=== PATIENT | male | born 1955 | race Caucasian/White ===

== ENCOUNTER 2018-02-19 05:49 | Inpatient (IN) | payer OTHER ==
[2018-02-19 06:29] VITALS: BMI 34.4
[2018-02-19] MEDS ORDERED: CEFAZOLIN 2 GM in DEXTROSE 5%-WATER - 50 ML IVPB ONE (07:17)
[2018-02-19] MEDS ORDERED: TRANEXAMIC ACID 1000 MG/10 ML VIAL IVPUSH ONE (07:17)
[2018-02-19] MEDS ORDERED: oxyCODONE HCL 10 MG SUSTAINED ACTING TABLET ONE (07:33)
[2018-02-19] MEDS ORDERED: CELECOXIB 200 MG CAPSULE ONE (07:33)
[2018-02-19] MEDS: oxyCODONE HCL 10 MG SUSTAINED ACTING TABLET PO ONE ×2 (07:35→13:39)
[2018-02-19] MEDS: CELECOXIB 200 MG CAPSULE PO ONE ×2 (07:35→13:36)
[2018-02-19] MEDS ORDERED: DEXAMETHASONE SOD PHOSPHATE/PF 10 MG/ML SDV ONE (07:37)
[2018-02-19] MEDS ORDERED: BUPIVACAINE LIPOSOME/PF (EXPAREL) 266 MG/20 ML VIAL ONE (07:38)
[2018-02-19] MEDS ORDERED: MIDAZOLAM HCL 2 MG/2 ML SINGLE DOSE VIAL ONE ×2 (07:38→08:25)
--- NOTE | 2018-02-19 07:39 | HP ---
History & Physical Update - History History: No Change - Physical Physical: No Change - Assessment Assessment: No Change - Plan Plan: No Change (Initial H&P is complete and located in patient's papaer chart. No new complaints or medications. Here today for elective repair of his left knee OA.)
[2018-02-19] MEDS ORDERED: PROPOFOL 20 ML ONE ×3 (08:25)
[2018-02-19] MEDS ORDERED: BENZOIN/ALOE VERA/STORAX/TOLU 58 ML BOTTLE ONE (08:26)
[2018-02-19] MEDS ORDERED: ceFAZolin SODIUM 1 GM VIAL ONE ×2 (08:31→10:57)
[2018-02-19] MEDS ORDERED: TRANEXAMIC ACID 1000 MG/10 ML VIAL ONE ×2 (08:36→10:48)
[2018-02-19] MEDS ORDERED: KETAMINE HCL 200 MG/20 ML VIAL ONE (08:54)
[2018-02-19] MEDS ORDERED: VANCOMYCIN 1,000 MG VIAL (RESTRICTED TO ID ONLY) ONE (09:05)
[2018-02-19] MEDS ORDERED: ONDANSETRON 4 MG/2 ML VIAL IVPUSH PRN ×2 (10:44→11:20)
[2018-02-19] MEDS ORDERED: MAG HYDROX/AL HYDROX/SIMETH 30 ML UNIT-DOSE CUP PO PRN (10:44)
[2018-02-19] MEDS ORDERED: MAGNESIUM HYDROX 2400MG/30ML ORAL SUSPENSION 30 ML CUP PO PRN (10:44)
[2018-02-19] MEDS ORDERED: LACTATED RINGERS SOLUTION 1,000 ML IV SCH (10:45)
--- NOTE | 2018-02-19 10:50 | OP ---
Operative Note - Note: Operative Date: 02/19/18 Pre-Operative Diagnosis: Left knee DJD Operation: Left TKA Implants: [employer] Tri[employer]. Femur - 6, PS. Tibia - 7. Poly - 13mm, TS. Patella - 27mm, symmetric Surgeon: Per French [employer]her [employer] Mica: Timbo French Anesthesiologist/SOLDERING MACHINE OPERATOR: Zion Goncalves Anesthesia: Spinal Specimens Removed: Bone, soft tissue Estimated Blood Loss (mls): 0 Drains & Tubes with Location: 1 x superficial hemovac Fluid Volume Replaced (mls): 1,000 Operative Report Dictated: Yes
--- NOTE | 2018-02-19 10:53 | PN ---
Progress Note (short form) - Note Progress Note: 62M s/p L TKA POD #0. -Pain control. -DVT PPx: -Chemical: ASA 81mg PO BID x 6 weeks. -Mechanical: COLT's, SCD's. -Incentive spirometry. -PT/OT/Rehab, OOB. -WBAT LLE. -f/u drain output. -f/u AM labs. -Care per medical hospitalist team. -Discharge planning: f/u [facility] [place] office 02/27/2018. Call for appointment: . -Will follow. Per French MD (Orthopaedic Surgery).
[2018-02-19] MEDS ORDERED: oxyCODONE HCL 5 MG TABLET PO PRN (11:20)
[2018-02-19] MEDS ORDERED: ACETAMINOPHEN 325 MG TABLET (FP) PO ONE (11:45)
--- NOTE | 2018-02-19 12:58 | CONSULT ---
Consultation: REQUESTING PROVIDER: Dr French CONSULT REQUEST: We have been asked to medically evaluate this patient for medical management HISTORY OF PRESENT ILLNESS: Patient is a 62-year-old male with a past medical history of hypertensions, DJD, s/p cervical fusion 2008. Patient is s/p left total knee replacement, Dr French, spinal anesthesia, 02/19/18 REVIEW OF SYSTEMS: CONSTITUTIONAL: Absent: fever, chills, diaphoresis, generalized weakness, malaise, loss of appetite, weight change HEENT: Absent: rhinorrhea, nasal congestion, throat pain, throat swelling, difficulty swallowing, mouth swelling, ear pain, eye pain, visual changes CARDIOVASCULAR: Absent: chest pain, syncope, palpitations, irregular heart rate, lightheadedness , peripheral edema RESPIRATORY: Absent: cough, shortness of breath, dyspnea with exertion, orthopnea, wheezing, stridor, hemoptysis GASTROINTESTINAL: Absent: abdominal pain, abdominal distension, nausea, vomiting, diarrhea, constipation, melena, hematochezia GENITOURINARY: Absent: dysuria, frequency, urgency, hesitancy, hematuria, flank pain, genital pain MUSCULOSKELETAL: Present: left knee pain Absent: myalgia, arthralgia, joint swelling, back pain, neck pain SKIN: Absent: rash, itching, pallor HEMATOLOGIC/IMMUNOLOGIC: Absent: easy bleeding, easy bruising, lymphadenopathy, frequent infections ENDOCRINE: Absent: unexplained weight gain, unexplained weight loss, heat intolerance, cold intolerance NEUROLOGIC: Absent: headache, focal weakness or paresthesias, dizziness, unsteady gait, seizure, mental status changes, bladder or bowel incontinence PSYCHIATRIC: Absent: anxiety, depression, suicidal or homicidal ideation, hallucinations. PHYSICAL EXAMINATION Vital Signs - 24 hr 02/19/18 02/19/18 02/19/18 06:22 11:18 11:20 Temperature 97.9 F 97.9 F Pulse Rate 55 L 61 54 L Respiratory 18 Rate Blood Pressure 137/70 98/52 103/58 O2 Sat by Pulse 99 99 Oximetry (%) 02/19/18 02/19/18 02/19/18 11:25 11:30 11:45 Temperature Pulse Rate 58 L 60 53 L Respiratory 18 Rate Blood Pressure 105/59 96/58 105/57 O2 Sat by Pulse 99 100 100 Oximetry (%) 05/30/18 05/30/18 12:00 12:10 Temperature 97.9 F Pulse Rate 51 L 53 L Respiratory 18 18 Rate Blood Pressure 102/62 107/67 O2 Sat by Pulse 100 Oximetry (%) GENERAL: Awake, alert, and fully oriented, in no acute distress. HEAD: Normal with no signs of trauma. EYES: Pupils equal, round and reactive to light, extraocular movements intact, sclera anicteric, conjunctiva clear. No lid lag. EARS, NOSE, THROAT: Ears normal, nares patent, oropharynx clear without exudates. Moist mucous membranes. NECK: Normal range of motion, supple without lymphadenopathy, JVD, or masses. LUNGS: Breath sounds equal, clear to auscultation bilaterally. No wheezes, and no crackles. No accessory muscle use. HEART: Regular rate and rhythm, normal S1 and S2 without murmur, rub or gallop. ABDOMEN: Soft, nontender, not distended, normoactive bowel sounds, no guarding, no rebound, no masses. No hepatomegaly or splenomegaly. MUSCULOSKELETAL: Normal range of motion at all joints. No bony deformities or tenderness. No CVA tenderness. UPPER EXTREMITIES: 2+ pulses, warm, well-perfused. No cyanosis. No clubbing. Cap refill <2 seconds. No peripheral edema. LOWER EXTREMITIES: 2+ pulses, warm, well-perfused. No calf tenderness. No peripheral edema. LEFT LOWER EXTREMITY: Huy BANDAGE IN PLACE hEMOVAC SCANT SANGUINOUS DRAINAGE NOTED SCD/COLT IN PLACE, LESS THAN 3 SECOND CAPILLARY REFILL +3 PEDAL PULSE NEUROLOGICAL: Cranial nerves II-XII intact. Normal speech. Normal gait. PSYCHIATRIC: Cooperative. Good eye contact. Appropriate mood and affect. SKIN: Warm, dry, normal turgor, no rashes or lesions noted. Active Medications Generic Name Dose Route Start Last Admin Trade Name Freq PRN Reason Stop Dose Admin Acetaminophen 650 mg 02/19/18 11:30 Tylenol - PO 02/22/18 11:29 Q6H JIMI Al Hydroxide/Mg Hydroxide 30 ml 02/19/18 10:44 Mylanta Oral Suspension - PO Q4H PRN DYSPEPSIA Aspirin 81 mg 02/19/18 22:00 Asa - PO BID [facility] Fentanyl 50 mcg 02/19/18 11:20 Sublimaze Injection - IVPUSH [id number] PRN PAIN-PACU ORDER X 4 DOSES ONLY Cefazolin Sodium 2 gm/ 100 mls @ 200 mls/hr 02/19/18 17:00 Dextrose IVPB 02/20/18 01:29 Q8H JIMI Lactated Ringer's 1,000 mls @ 100 mls/hr 02/19/18 10:45 Lactated Ringers Solution IV 02/20/18 06:00 ASDIR JIMI Lactated Ringer's 1,000 mls @ 75 mls/hr 02/19/18 11:30 Lactated Ringers Solution IV ASDIR JIMI Lisinopril 20 mg 02/20/18 10:00 Prinivil PO DAILY JIMI Magnesium Hydroxide 30 ml 02/19/18 10:44 Milk Of Magnesia - PO PRN PRN CONSTIPATION Ondansetron HCl 4 mg 02/19/18 10:44 Zofran Injection IVPUSH Q6H PRN NAUSEA Ondansetron HCl 4 mg 02/19/18 11:20 Zofran Injection IVPUSH Q6H PRN NAUSEA AND/OR VOMITING Oxycodone HCl 5 mg 02/19/18 11:20 Roxicodone - PO Q3H PRN PAIN LEVEL 1-5 Oxycodone HCl 10 mg 02/19/18 11:20 Roxicodone - PO Q3H PRN PAIN LEVEL 6-10 Oxycodone HCl 10 mg 02/19/18 22:00 Oxycontin - PO 02/22/18 11:20 BID [facility] Pantoprazole Sodium 40 mg 02/20/18 10:00 Protonix - PO DAILY [facility] Quetiapine Fumarate 50 mg 02/19/18 22:00 Seroquel - PO [facility] Senna/Docusate Sodium tablet 02/19/18 22:00 Pericolace - PO BID [facility] ASSESSMENT/PLAN: 1) MS s/p Left total knee replacement - When necessary pain medication - Physical therpay as per orthopedist - monitor hgb 2) cardiovascular hypertension - Continue lisinopril Dispo: We will continue to follow the patient. Thank you for this consultative opportunity. Visit type - Emergency Visit Emergency Visit: No - New Patient This patient is new to me today: Yes Date on this admission: 02/19/18 - Critical Care Critical Care patient: No
[2018-02-19] MEDS: oxyCODONE HCL 5 MG TABLET PO PRN ×4 (13:26→23:27)
[2018-02-19] MEDS: LACTATED RINGERS SOLUTION 1,000 ML IV SCH (13:39)
[2018-02-19] MEDS: ACETAMINOPHEN 325 MG TABLET (FP) PO SCH ×3 (13:41→23:26)
[2018-02-19] MEDS ORDERED: REFRIGERATED ANITBIOTICS ONE (16:26)
[2018-02-19] MEDS: CEFAZOLIN 2 GM in DEXTROSE 5%-WATER - 100 ML IVPB SCH (16:31)
--- NOTE | 2018-02-19 19:03 | OP ---
DATE OF OPERATION: 02/19/2018 SURGEON: Per French MD [facility] RO[facility] ATTENDANT: Timbo French MD; KERLINE Savage PREOPERATIVE DIAGNOSIS: Tricompartment osteoarthritis of the left knee with fixed varus and fixed flexion deformity of approximately 15 degrees each. ANESTHESIA: Peripheral nerve block combined with spinal anesthesia and conscious sedation. ANTIBIOTICS GIVEN: Kefzol 2 g, vancomycin 1g preoperatively, and Kefzol 1 g given at the time of release of the tourniquet. TOURNIQUET TIME: 90 minutes. OPERATION PERFORMED: 1. Left posterior stabilized total knee arthroplasty ([employer] Triathlon). 2. Lateral release. OPERATION DETAILS: Patient correctly identified, brought in the operating room. Timeout was called. Imaging was available for intraoperative evaluation. The left lower extremity was prepped, free draped in the routine manner with Betadine scrub solution, wiped off with alcohol, DuraPrep applied and a free drape applied. Preoperative range of movement was about 15 to 80-90 degrees. A midline incision was utilized. The thoughts towards a sub-vastus approach was canceled because of the tightness of the knee, and we went ahead with a routine longitudinal incision in the quadriceps tendon, longitudinally incised, a medial parapatellar incision performed around the medial tibial tubercle, with difficulty. It was difficult to maneuver the patella. Utilizing Whitesides principles of an incision from the quadriceps ligament to the patella ligament, the patella was cut virtually in the vertical position in order to debulk the patella to gain access to this knee joint. The lateral facets were obliquely incised (Xavi-Castellano). This extended into a lateral release. Utilizing a Hohmann retractor placed in intercondylar notch behind the tibia, the tibia was levered forward after a careful dissection of the proximal soft tissue envelope off the proximal medial aspect of the tibia utilizing a sharp knife to free the soft tissues off the bone bed. This gave easy access to the actual tibia. The popliteus was transected and the tibial cut was made utilizing extramedullary jig alignment device from [employer]. The cut was made neutral and an approximately 0.75 cm cut made appropriately. This was for measurement for a size 7 universal baseplate tibia. The femur was then cut appropriately, according to the jig alignment system, the entry hole being made just above the intercondylar notch, which was shut down by osteophyte. The sword of the intramedullary device inserted, aiming at keeping the hand anterior to decrease any flexion positioning of the component. Onto this, the appropriate jig system was applied, this to resect 10 mm off the distal femur. A size 6 Triathlon posterior stabilized femoral component was cut appropriately. The starter hole as sealed with a bone plug. The flexion and extension gaps were even. It was noted that there was slight looseness after the bony cuts and soft tissue dissection, that the medial side opened unpredictably more than the lateral side. This blocked the rectangle of the flexion/extension gaps and hence the TS polyethylene was utilized. The femur size 7 was seated as a trial. Trialing was excellent, with a size 13 polyethylene liner, full extension and flexion beyond 90 degrees achieved. Cement of the bone bed was thoroughly lavaged with pulse lavage cementing as one stage, patella, tibia and femur. All extraneous cement was removed once cured. The size 13-mm polyethylene liner was inserted. The knee was reduced and was completely anatomical, with full extension and full flexion. It must be noted that at the beginning of the procedure, the patellar ligament wanted to peel off the tibial tubercle. This was held in position by 2 pins placed into the patellar ligament and bone bed to prevent this event. The closure was as follows: Thorough lavage performed with pulse lavage. Fascia and paratenon with 1 Vicryl; subcutaneous 1 and 2-0 Vicryl; skin 3-0 Monocryl; Steri-Strips. Drainage: A 1/8-inch Hemovac x1. OVERALL COMMENT: The operation went well. Difficult knee. MD DEVYN Martinez/[id number]
[2018-02-19] MEDS: QUEtiapine FUMARATE 25 MG TABLET (FP) PO SCH (21:16)
[2018-02-19] MEDS: SENNOSIDES/DOCUSATE COMBO (SENNA PLUS) TABLET (UD) PO SCH (21:16)
[2018-02-19] MEDS: ASPIRIN 81 MG CHEWABLE TABLETS PO SCH (21:16)
[2018-02-19] MEDS: oxyCODONE HCL 10 MG SUSTAINED ACTING TABLET PO SCH (21:17)
[2018-02-20] MEDS: CEFAZOLIN 2 GM in DEXTROSE 5%-WATER - 100 ML IVPB SCH (01:06)
[2018-02-20] MEDS: oxyCODONE HCL 5 MG TABLET PO PRN ×5 (02:27→19:31)
[2018-02-20] MEDS: ACETAMINOPHEN 325 MG TABLET (FP) PO SCH ×3 (06:33→18:13)
[2018-02-20 08:26] LABS: HEMATOCRIT 39.5 % (35.4-49); MCH 31.4 pg (25.7-33.7); MCHC 35.5 g/dl (32.0-35.9); MEAN CELL VOLUME 88.5 fl (80-96); MEAN PLT VOLUME 8.9 fl (7.5-11.1); PLATELET COUNT 227 K/MM3 (134-434); RBC 4.47 M/mm3 (4.00-5.60); WHITE BLOOD COUNT 15.6 K/mm3 (4.0-10.8)
[2018-02-20 08:30] LABS: ANION GAP 8 (8-16); BLOOD UREA NITROGEN 12 mg/dl (7-18); CALCIUM 8.5 mg/dl (8.4-10.2); CHLORIDE 98 mmol/L (98-107); CO2 24 mmol/L (22-28); GLUCOSE,RANDOM 129 mg/dl (74-106); POTASSIUM 3.5 mmol/L (3.5-5.1); SODIUM 130 mmol/L (136-145)
[2018-02-20 09:02] LABS: CREATININE < 0.8 mg/dl (0.6-1.3)
[2018-02-20] MEDS: ASPIRIN 81 MG CHEWABLE TABLETS PO SCH ×2 (10:06→21:39)
[2018-02-20] MEDS: SENNOSIDES/DOCUSATE COMBO (SENNA PLUS) TABLET (UD) PO SCH ×2 (10:07→21:39)
[2018-02-20] MEDS: LISINOPRIL 20 MG TABLET (FP) PO SCH (10:07)
[2018-02-20] MEDS: PANTOPRAZOLE 40 MG TABLET (FP) PO SCH (10:07)
[2018-02-20] MEDS: oxyCODONE HCL 10 MG SUSTAINED ACTING TABLET PO SCH ×2 (10:07→21:39)
--- NOTE | 2018-02-20 11:02 | PN ---
Progress Note, Physician Chief Complaint: s/p left knee arthoplasty under spinal anesthesia post op day one. History of Present Illness: adductor canal block for post op pain control. - Current Medication List Current Medications: Active Medications Acetaminophen (Tylenol -) 650 mg PO Q6H [facility] Stop: 02/22/18 17:59 Last Admin: 02/20/18 06:33 Dose: 650 mg Al Hydroxide/Mg Hydroxide (Mylanta Oral Suspension -) 30 ml PO Q4H PRN PRN Reason: DYSPEPSIA Aspirin (Asa -) 81 mg PO BID [facility] Last Admin: 02/20/18 10:06 Dose: 81 mg Fentanyl (Sublimaze Injection -) 50 mcg IVPUSH [id number] PRN PRN Reason: PAIN-PACU ORDER X 4 DOSES ONLY Lactated Ringer's (Lactated Ringers Solution) 1,000 mls @ 75 mls/hr IV ASDIR [facility] Last Admin: 02/19/18 13:39 Dose: Not Given Lisinopril (Prinivil) 20 mg PO DAILY [facility] Last Admin: 02/20/18 10:07 Dose: 20 mg Magnesium Hydroxide (Milk Of Magnesia -) 30 ml PO PRN PRN PRN Reason: CONSTIPATION Ondansetron HCl (Zofran Injection) 4 mg IVPUSH Q6H PRN PRN Reason: NAUSEA Oxycodone HCl (Roxicodone -) 5 mg PO Q3H PRN PRN Reason: PAIN LEVEL 1-5 Oxycodone HCl (Roxicodone -) 10 mg PO Q3H PRN PRN Reason: PAIN LEVEL 6-10 Last Admin: 02/20/18 10:08 Dose: 10 mg Oxycodone HCl (Oxycontin -) 10 mg PO BID [facility] Stop: 02/22/18 11:20 Last Admin: 02/20/18 10:07 Dose: 10 mg Pantoprazole Sodium (Protonix -) 40 mg PO DAILY [facility] Last Admin: 02/20/18 10:07 Dose: 40 mg Quetiapine Fumarate (Seroquel -) 50 mg PO HS [facility] Last Admin: 02/19/18 21:16 Dose: 50 mg Senna/Docusate Sodium (Pericolace -) 2 tablet PO BID [facility] Last Admin: 02/20/18 10:07 Dose: 2 tablet - Objective Vital Signs: Vital Signs Temperature 98.4 F 02/20/18 06:00 Pulse Rate 83 02/20/18 06:00 Respiratory Rate 18 02/20/18 08:27 Blood Pressure 124/65 02/20/18 06:00 O2 Sat by Pulse Oximetry (%) 98 02/20/18 08:27 Constitutional: Yes: Well Nourished Cardiovascular: Yes: WNL Respiratory: Yes: WNL Gastrointestinal: Yes: WNL Labs: CBC, BMP 02/20/18 07:40 02/20/18 07:40 Assessment/Plan Patient doing well, pain controlled, no nausea or vomiting, dept of anesthesia will sign off care at this time.
--- NOTE | 2018-02-20 13:29 | PN ---
Physical Exam: SUBJECTIVE: Patient seen and examined, Sitting in a recliner reports feeling well, and related this morning with physical therapy denies any chest pain or shortness of breath denies any paresthesia the left lower extremity. OBJECTIVE: Patient is a 62-year-old male with a past medical history of hypertensions, DJD, s/p cervical fusion 2008. Patient is s/p left total knee replacement, Dr French, spinal anesthesia, post op day 1. Vital Signs Period Temp Pulse Resp BP Sys/Bush Pulse Ox Last 24 Hr 97.1 F-98.4 F 55-102 16-19 122-138/65-77 97-100 GENERAL: The patient is awake, alert, and fully oriented, in no acute distress. HEAD: Normal with no signs of trauma. EYES: PERRL, extraocular movements intact, sclera anicteric, conjunctiva clear. No ptosis. ENT: Ears normal, nares patent, oropharynx clear without exudates, moist mucous membranes. NECK: Trachea midline, full range of motion, supple. LUNGS: Breath sounds equal, clear to auscultation bilaterally, no wheezes, no crackles, no accessory muscle use. HEART: Regular rate and rhythm, S1, S2 without murmur, rub or gallop. ABDOMEN: Soft, nontender, nondistended, normoactive bowel sounds, no guarding, no rebound, no hepatosplenomegaly, no masses. EXTREMITIES: 2+ pulses, warm, well-perfused, no edema. LOWER EXTREMITY: dressing CDI, Hemovac drain scant sanguinous drainage, less than 3 second capillary refill, +4 pedal pulse, SCDs/saqib NEUROLOGICAL: Cranial nerves II through XII grossly intact. Normal speech, gait not observed. PSYCH: Normal mood, normal affect. SKIN: Warm, dry, normal turgor, no rashes or lesions noted Laboratory Results - last 24 hr 02/20/18 02/20/18 07:40 07:40 WBC 15.6 H RBC 4.47 Hgb 14.0 Hct 39.5 MCV 88.5 MCH 31.4 MCHC 35.5 RDW 12.0 Plt Count 227 MPV 8.9 Sodium 130 L Potassium 3.5 Chloride 98 Carbon Dioxide 24 Anion Gap 8 BUN 12 Creatinine < 0.8 Random Glucose 129 H Calcium 8.5 Active Medications Generic Name Dose Route Start Last Admin Trade Name Freq PRN Reason Stop Dose Admin Acetaminophen 650 mg 02/19/18 18:00 02/20/18 06:33 Tylenol - PO 02/22/18 17:59 650 mg Q6H JIMI Administration Al Hydroxide/Mg Hydroxide 30 ml 02/19/18 10:44 Mylanta Oral Suspension - PO Q4H PRN DYSPEPSIA Aspirin 81 mg 02/19/18 22:00 02/20/18 10:06 Asa - PO 81 mg BID JIMI Administration Fentanyl 50 mcg 02/19/18 11:20 Sublimaze Injection - IVPUSH [id number] PRN PAIN-PACU ORDER X 4 DOSES ONLY Lactated Ringer's 1,000 mls @ 75 mls/hr 02/19/18 11:30 02/19/18 13:39 Lactated Ringers Solution IV Not Given ASDIR JIMI Lisinopril 20 mg 02/20/18 10:00 02/20/18 10:07 Prinivil PO 20 mg DAILY JIMI Administration Magnesium Hydroxide 30 ml 02/19/18 10:44 Milk Of Magnesia - PO PRN PRN CONSTIPATION Ondansetron HCl 4 mg 02/19/18 10:44 Zofran Injection IVPUSH Q6H PRN NAUSEA Oxycodone HCl 5 mg 02/19/18 11:20 Roxicodone - PO Q3H PRN PAIN LEVEL 1-5 Oxycodone HCl 10 mg 02/19/18 11:20 02/20/18 10:08 Roxicodone - PO 10 mg Q3H PRN Administration PAIN LEVEL 6-10 Oxycodone HCl 10 mg 02/19/18 22:00 02/20/18 10:07 Oxycontin - PO 02/22/18 11:20 10 mg BID JIMI Administration Pantoprazole Sodium 40 mg 02/20/18 10:00 02/20/18 10:07 Protonix - PO 40 mg DAILY JIMI Administration Quetiapine Fumarate 50 mg 02/19/18 22:00 02/19/18 21:16 Seroquel - PO 50 mg HS [facility] Administration Senna/Docusate Sodium 2 tablet 02/19/18 22:00 02/20/18 10:07 Pericolace - PO 2 tablet BID JIMI Administration ASSESSMENT/PLAN: 1) MS s/p Left total knee replacement, POD #1 - When necessary pain medication - Physical therpay as per orthopedist - repeat hgb 14.0 2) cardiovascular hypertension - Continue lisinopril - b/p at goal Dispo: We will continue to follow the patient. Thank you for this consultative opportunity. Visit type - Emergency Visit Emergency Visit: No - New Patient This patient is new to me today: No - Critical Care Critical Care patient: No - Discharge Referral Referred to [facility] Med P.C.: No
--- NOTE | 2018-02-20 13:29 | PN ---
Progress Note (short form) - Note Progress Note: 62yo M s/p Left knee replacement POD 1, seen sitting up in chair. Pt complains of some moderate Lt knee pain that is controlled with pain medication. Pt denies n/v, fever, chills, weakness. Pt had morning session with PT that went well. Pt urinating well and tolerating PO Last Vital Signs Temp Pulse Resp BP Pulse Ox 98.4 F 83 18 124/65 98 02/20/18 06:00 02/20/18 06:00 02/20/18 08:27 02/20/18 06:00 02/20/18 08:27 CBC, BMP 02/20/18 07:40 02/20/18 07:40 PE: Gen: A&O x 3 Resp: breathing comfortably Ext: Left leg wrapped in dressing no visible stains or discharge. Mild tenderness to palpation. Drain in place with serosanguinous drainage. Output: 25ml Problem List - Problems (1) Knee osteoarthritis Assessment/Plan: Plan Continue PT this afternoon Pain control DVT ppx consider removing drain tomorrow and possible discharge Code(s): M17.10 - UNILATERAL PRIMARY OSTEOARTHRITIS, UNSPECIFIED KNEE
[2018-02-20] MEDS: QUEtiapine FUMARATE 25 MG TABLET (FP) PO SCH (21:39)
[2018-02-21] MEDS: ACETAMINOPHEN 325 MG TABLET (FP) PO SCH ×3 (00:14→11:22)
[2018-02-21] MEDS: oxyCODONE HCL 5 MG TABLET PO PRN ×2 (06:13→13:16)
[2018-02-21] MEDS: LACTATED RINGERS SOLUTION 1,000 ML IV SCH ×2 (06:58→11:22)
[2018-02-21 09:13] VITALS: BP 134/74; PULSE 98; TEMP 97.6
[2018-02-21] MEDS: PANTOPRAZOLE 40 MG TABLET (FP) PO SCH (09:15)
[2018-02-21] MEDS: LISINOPRIL 20 MG TABLET (FP) PO SCH (09:15)
[2018-02-21] MEDS: SENNOSIDES/DOCUSATE COMBO (SENNA PLUS) TABLET (UD) PO SCH (09:15)
[2018-02-21] MEDS: ASPIRIN 81 MG CHEWABLE TABLETS PO SCH (09:15)
[2018-02-21] MEDS: oxyCODONE HCL 10 MG SUSTAINED ACTING TABLET PO SCH (09:15)
[2018-02-21 09:49] LABS: HEMATOCRIT 36.1 % (35.4-49); HEMOGLOBIN 12.8 GM/dl (11.7-16.9); MCH 31.2 pg (25.7-33.7); MCHC 35.5 g/dl (32.0-35.9); MEAN PLT VOLUME 9.2 fl (7.5-11.1); PLATELET COUNT 184 K/MM3 (134-434); WHITE BLOOD COUNT 16.3 K/mm3 (4.0-10.8)
--- NOTE | 2018-02-21 12:35 | DS ---
"Physical Exam: SUBJECTIVE: Patient seen and examined. He participated in PT this am, experiences some sweating, now improved OBJECTIVE: Vital Signs Period Temp Pulse Resp BP Sys/Bush Pulse Ox Last 24 Hr 97.6 F-100.0 F 77-102 18-18 125-134/65-74 92-99 PE Neuro: alert, awake, cn 2-12intact Pulm: regular, no sob, no wheezing CV: s1 s2 rrr Abd: s nt nd + bs Ext: L knee dressing in tact, dressing remains, mod tenderness Laboratory Results - last 24 hr 02/21/18 08:45 WBC 16.3 H RBC 4.10 Hgb 12.8 Hct 36.1 MCV 88.0 MCH 31.2 MCHC 35.5 RDW 12.0 Plt Count 184 MPV 9.2 HOSPITAL COURSE: Date of Admission:02/19/18 Date of Discharge: 02/21/18 Minutes to complete discharge: 40 Discharge Summary Reason For Visit: TRANSIENT SYNOVITIS LEFT KNEE Current Active Problems Knee osteoarthritis (Acute) Hospital Course: Discharge Summary: 62 year old male with a past medical history of hypertensions, DJD, s/p cervical fusion 2008. Patient is s/p left total knee replacement, Dr French, spinal anesthesia, 02/19/18. Plan: 1. s/p Left total knee replacement 02/19/18 - Take pain meds as directed for pain - Follow up with [facility]. [facility] [place] office 02/27/2018. Call for appointment: . - ASA 81mg BID x6 weeks - PT daily - Ambulate with walker 2. HTN - Continue lisinopril Dispo: - Home with above plan, daughter at bedside aware Condition: Stable - Instructions Diet, Activity, Other Instructions: Dr. Frecnh's Postoperative Knee Replacement Instructions Keep the dressing on until removed by Dr. French next week. No baths. You have a follow up appointment on 02/27, Call the to verify your appointment time [phone] Take one Aspirin 81mg every 12 hours for the next 6 weeks to prevent blood clots in your legs. For pain: Mild pain (1-4/10): Take 1 Tramadol tablet every 4 hours as needed. Moderate pain (5-7/10): Take 1 Tramadol tablet and 1 Percocet tablet every 4 hours as needed. Severe pain (8-10/10): Take 1 Tramadol tablet and 2 Percocet tablets every 4 hours as needed. Activity: You can put as much weight on the operative leg as you want. Right after you get home, there will be a physical therapist coming to your house to help you walk around and bend/straighten your knee. After your follow-up appointment, you will be sent for more intensive outpatient physical therapy which will include machines and equipment that the home therapist cannot bring to your house. Always use a walker or cane for balance and to prevent falls. This report was requested by: Galina Dinh | Reference #: [id number] 01/28/2018 01/28/2018 endocet 10-325 mg tablet 120 30 Per Haque DDLena Referrals: Timbo French MD [Staff Physician] - Disposition: HOME - Home Medications Comprehensive Discharge Medication List: Ambulatory Orders Garlic Extract 2 tab PO BID 02/13/18 Lisinopril [Prinivil] 20 mg PO DAILY 02/13/18 Multivitamin [One Daily] 1 each PO DAILY 02/13/18 Oxycodone HCl/Acetaminophen [Endocet 10-325 mg Tablet] 1 each PO Q6H PRN Quetiapine Fumarate [Seroquel -] 50 mg PO HS 02/13/18 Sennosides [Senna -] 2 tab PO DAILY PRN 02/13/18 Aspirin [ASA -] 81 mg PO BID #90 tab.chew 02/21/18 This patient is new to me today: Yes Date on this admission: 02/21/18 Emergency Visit: Yes ED Registration Date: 02/19/18 Care time: The patient presented to the Emergency Department on the above date and was hospitalized for further evaluation of their emergent condition. Critical Care patient: No - Discharge Referral Referred to [facility] Med P.C.: No"
[2018-02-21 13:13] LABS: ANION GAP 6 (8-16); BLOOD UREA NITROGEN 13 mg/dl (7-18); CHLORIDE 101 mmol/L (98-107); CO2 25 mmol/L (22-28); GLUCOSE,RANDOM 141 mg/dl (74-106); POTASSIUM 3.4 mmol/L (3.5-5.1); SODIUM 132 mmol/L (136-145)
[2018-02-21 13:53] LABS: CREATININE < 0.8 mg/dl (0.6-1.3)
[2018-02-21] MEDS ORDERED: POTASSIUM CHLORIDE ORAL LIQUID 20 MEQ/15 ML PO ONE (14:30)
--- NOTE | 2018-02-21 17:27 | PATH ---
Surgical Pathology Report Patient Name: ADDISON MENDEZ Med. Rec. #: [id number] /Age/Gender: 1955 (Age: 62) / M Account: [id number] Location: [facility] Taken: 02/19/2018 Received: 02/19/2018 Reported: 02/21/2018 Physicians: Per French M.D. Specimen(s) Received BONE LEFT KNEE Clinical History Osteoarthritis left knee Final Diagnosis BONE, KNEE, LEFT, TOTAL KNEE REPLACEMENT: A BONE WITH DEGENERATIVE JOINT DISEASE, DENSE FIBROCONNECTIVE TISSUE, AND SKELETAL MUSCLE. Electronically Signed Jen Pimentel M.D. Gross Description Received in formalin labeled "bone left knee," is a 15.0 x 12.5 x 2.5 cm aggregate of multiple portions of lorenzo bone and soft tissue. The tibial plateau measures 9.0 x 6.8 x 2.6 cm. There is a 3.3 cm in greatest dimension area of eburnation present. The remaining articular surfaces are lorenzo-yellow and diffusely granular and nodular. The underlying trabecular bone is yellow and hard. Food Production Supervisor sections are submitted in one cassette, following decalcification. /02/20/201802/20/2018
== END 2018-02-21 15:30 | disposition home health service (06) | DRG 302 ==
LOC: FM/S 05:49
PROVIDERS: ADMIT Orthopaedic Surgery Orthopaedic Surgery of the Spine; ATTEND Orthopaedic Surgery Orthopaedic Surgery of the Spine
PROC: 0SRD069 Replacement of Left Knee Joint with Oxidized Zirconium on Polyethylene Synthetic Substitute, Cemented, Open Approach (ICD-10-PCS; principal; 2018-02-19 09:22)
DX: M17.12 Unilateral primary osteoarthritis, left knee (principal); I10 Essential (primary) hypertension
CPT/HCPCS: 36415; 73560-TC-LT-FY; 80048; 85027; 88304-TC; 88311-TC; 94010; 94760; 97116-GP; 97162-GP

== ENCOUNTER 2018-10-29 09:18 | Inpatient (IN) | payer OTHER ==
[2018-10-16 11:08] VITALS: BMI 31.4
[2018-10-29] MEDS ORDERED: BUPIVACAINE LIPOSOME/PF (EXPAREL) 266 MG/20 ML VIAL ONE (13:18)
[2018-10-29] MEDS ORDERED: MIDAZOLAM HCL 2 MG/2 ML SINGLE DOSE VIAL ONE ×3 (13:18→16:30)
[2018-10-29] MEDS ORDERED: VANCOMYCIN 1,000 MG VIAL (RESTRICTED TO ID ONLY) ONE (13:41)
[2018-10-29] MEDS ORDERED: PROPOFOL 20 ML ONE ×3 (14:30→16:41)
[2018-10-29] MEDS ORDERED: ePHEDrine SULFATE 50 MG/1 ML AMPULE ONE (14:31)
--- NOTE | 2018-10-29 16:53 | PN ---
Progress Note (short form) - Note Progress Note: 63M s/p RIGHT total knee replacement POD #0. -Pain control. -DVT PPx: -Chemical: ASA 81mg PO BID x 6 weeks. -Mechanical: COLT's, SCD's. -Incentive spirometry. -PT/OT/Rehab, OOB. -WBAT RLE. -Antibiotics: Ancef x 2 post op doses. -f/u drain output. -f/u post-op trial of void. -Diet as tolerated. -Keep dressing clean & dry. -Care per medical hospitalist team. -f/u [facility] [place] office 11/07/2018; call for appointment; . -Will follow. Per French MD (Orthopaedic Surgery).
--- NOTE | 2018-10-29 16:56 | OP ---
Operative Note - Note: Operative Date: 10/29/18 Pre-Operative Diagnosis: Right knee osteoarthritis Operation: Right total knee replacement Implants: [employer]: Femur - 6. Tibia - 7. Poly - 13mm, TS. Patella - 27mm Post-Operative Diagnosis: Same as Pre-op Surgeon: Per French Stonemason Supervisor: Timbo French Anesthesiologist/SIEVE MAKER: Dionicio Lane Anesthesia: Spinal Specimens Removed: Bone, soft tissue Estimated Blood Loss (mls): 0 Drains & Tubes with Location: 1 x deep HemoVac drain Fluid Volume Replaced (mls): 1,000 (Crystalloid) Operative Report Dictated: Yes
[2018-10-29] MEDS ORDERED: MAG HYDROX/AL HYDROX/SIMETH 30 ML UNIT-DOSE CUP PO PRN (16:57)
[2018-10-29] MEDS ORDERED: ONDANSETRON 4 MG/2 ML VIAL IVPUSH PRN (16:57)
[2018-10-29] MEDS ORDERED: MAGNESIUM HYDROX 2400MG/30ML ORAL SUSPENSION 30 ML CUP PO PRN (16:57)
[2018-10-29] MEDS ORDERED: LACTATED RINGERS SOLUTION 1,000 ML IV SCH (17:00)
[2018-10-29] MEDS ORDERED: ONDANSETRON 4 MG/2 ML VIAL IVPUSH ONE (17:25)
[2018-10-29] MEDS ORDERED: ACETAMINOPHEN 325 MG TABLET (FP) PO ONE (18:00)
[2018-10-29] MEDS: oxyCODONE HCL 5 MG TABLET PO PRN ×3 (18:00→21:36)
[2018-10-29] MEDS ORDERED: oxyCODONE HCL 5 MG TABLET ONE (18:01)
[2018-10-29] MEDS ORDERED: ACETAMINOPHEN 325 MG TABLET (FP) ONE (18:01)
[2018-10-29] MEDS ORDERED: oxyCODONE HCL 5 MG TABLET PO PRN (18:55)
--- NOTE | 2018-10-29 19:28 | CONSULT ---
Consult Consult Specialty:: Hospital Medicine Referred by:: Dr. French Reason for Consultation:: Medical Management - History of Present Illness History of Present Illness: This is a 63 y/o man with a PMHx of HTN, OA, BPH. s/p R-TKR POD#0. Patient is alert, awake and oriented. He reports having elective surgery secondary to severe OA. He reports right knee pain, PS 8/10. Patient reports sensation to right leg and foot. Patient reports voiding, no flatulence no BM. Patient denies fever, chills, cough, SOB, dizziness, CORREA, CP, palpitations, AP, N/V/D, dysuria. - History Source History Provided By: Patient, Family Member Limitations to Obtaining History: No Limitations - Past Medical History Cardio/Vascular: Yes: HTN Musculoskeletal: Yes: Osteoarthritis - Past Surgical History Past Surgical History: Yes: Arthrosocopy (Left), Colonoscopy Additional Surgical History: Lumbar/Cervical Spine. Right Meniscus - Alcohol/Substance Use Hx Alcohol Use: No History of Substance Use: reports: None - Smoking History Smoking history: Never smoked Have you smoked in the past 12 months: No - Social History Usual Living Arrangement: With Spouse ADL: Independent History of Recent Travel: No Home Medications - Allergies Allergies/Adverse Reactions: Allergies Allergy/AdvReac Type Severity Reaction Status Date / Time No Known Allergies Allergy Verified 10/29/18 10:06 - Home Medications Home Medications: Ambulatory Orders Lisinopril [Prinivil] 10 mg PO DAILY 02/13/18 Quetiapine Fumarate [Seroquel -] 50 mg PO HS 02/13/18 Sennosides [Senna -] 2 tab PO DAILY PRN 02/13/18 traMADol HCL [Ultram] 50 mg PO Q6H PRN #20 tablet MDD 200mg 02/21/18 Oxycodone HCl/Acetaminophen [Endocet 10-325 mg Tablet] 1 each PO BID PRN Review of Systems - Review of Systems Constitutional: reports: No Symptoms Eyes: reports: No Symptoms HENT: reports: No Symptoms Neck: reports: No Symptoms Cardiovascular: reports: No Symptoms Respiratory: reports: No Symptoms Gastrointestinal: reports: No Symptoms Genitourinary: reports: No Symptoms Breasts: reports: No Symptoms Reported Musculoskeletal: reports: Joint Pain Integumentary: reports: No Symptoms Neurological: reports: No Symptoms Endocrine: reports: No Symptoms Hematology/Lymphatic: reports: No Symptoms Psychiatric: reports: No Symptoms Pain Intensity: 8 Physical Exam Vital Signs: Vital Signs Temperature 97.7 F 10/29/18 19:00 Pulse Rate 87 10/29/18 19:00 Respiratory Rate 16 10/29/18 19:00 Blood Pressure 134/80 10/29/18 19:00 O2 Sat by Pulse Oximetry (%) 99 10/29/18 18:30 Constitutional: Yes: Well Nourished, Mild Distress Eyes: Yes: WNL, Conjunctiva Clear, EOM Intact, PERRL HENT: Yes: WNL, Atraumatic, Normocephalic Neck: Yes: WNL, Supple, Trachea Midline Cardiovascular: Yes: WNL, Regular Rate and Rhythm, S1, S2 Respiratory: Yes: WNL, Regular, CTA Bilaterally Gastrointestinal: Yes: WNL, Normal Bowel Sounds, Soft, Abdomen, Obese ...Rectal Exam: Yes: Deferred Renal/: Yes: WNL Breast(s): Yes: WNL Musculoskeletal: Yes: Other Extremities: Yes: WNL Edema: No Peripheral Pulses WNL: Yes Wound/Incision: Yes: Dressing Dry and Intact, Other (hemovac icepack) Neurological: Yes: WNL, Alert, Oriented Psychiatric: Yes: WNL, Alert, Oriented Problem List - Problems (1) Status post total right knee replacement Code(s): Z96.651 - PRESENCE OF RIGHT ARTIFICIAL KNEE JOINT (2) Knee osteoarthritis Code(s): M17.10 - UNILATERAL PRIMARY OSTEOARTHRITIS, UNSPECIFIED KNEE (3) HTN (hypertension) Code(s): I10 - ESSENTIAL (PRIMARY) HYPERTENSION Assessment/Plan This is a 63 y/o man PMHx of: HTN, BPH, OA. Here for elective surgery s/p R-TKR POD #0. Plan: See Problem List FEN LR@125ml/hr Replete lytes prn Low Na Diet DVT ppx OOB SCDs TEDs Asa 81mg BID Physical Therapy Dispo: Requires Inpatient Care We will continue to follow the patient. Thank you for this consultative opportunity Visit type - Emergency Visit Emergency Visit: No - New Patient This patient is new to me today: Yes Date on this admission: 10/29/18 - Critical Care Critical Care patient: No
[2018-10-29] MEDS: KETOROLAC TROMETHAMINE 30 MG/1 ML VIAL IVPUSH SCH (20:38)
[2018-10-29] MEDS: ACETAMINOPHEN 325 MG TABLET (FP) PO SCH (20:38)
[2018-10-29] MEDS: ASPIRIN 81 MG CHEWABLE TABLETS PO SCH (21:36)
[2018-10-29] MEDS: SENNOSIDES/DOCUSATE COMBO (SENNA PLUS) TABLET (UD) PO SCH (21:37)
[2018-10-29] MEDS: QUEtiapine FUMARATE 25 MG TABLET (FP) PO SCH (21:37)
[2018-10-29] MEDS: oxyCODONE HCL 10 MG SUSTAINED ACTING TABLET PO SCH (23:21)
[2018-10-30] MEDS: oxyCODONE HCL 5 MG TABLET PO PRN ×5 (01:25→19:47)
[2018-10-30] MEDS: ACETAMINOPHEN 325 MG TABLET (FP) PO SCH ×4 (01:25→18:00)
[2018-10-30] MEDS: CEFAZOLIN 2 GM/D5W 2 GM/50 ML ML IVPB SCH ×2 (01:25→09:24)
[2018-10-30] MEDS: KETOROLAC TROMETHAMINE 30 MG/1 ML VIAL IVPUSH SCH (04:15)
--- NOTE | 2018-10-30 07:26 | PN ---
Physical Exam: SUBJECTIVE: Patient seen and examined. Feeling well, pain is well-controlled. OBJECTIVE: Vital Signs Period Temp Pulse Resp BP Sys/Bush Pulse Ox Last 24 Hr 97.4 F-98.2 F 54-87 11-18 108-149/61-80 94-100 GENERAL: The patient is awake, alert, and fully oriented, in no acute distress. HEAD: Normal with no signs of trauma. EYES: PERRL, extraocular movements intact, sclera anicteric, conjunctiva clear. No ptosis. ENT: Ears normal, nares patent, oropharynx clear without exudates, moist mucous membranes. NECK: Trachea midline, full range of motion, supple. LUNGS: Breath sounds equal, clear to auscultation bilaterally, no wheezes, no crackles, no accessory muscle use. HEART: Regular rate and rhythm, S1, S2 without murmur, rub or gallop. ABDOMEN: Soft, nontender, nondistended, normoactive bowel sounds, no guarding, no rebound, no hepatosplenomegaly, no masses. EXTREMITIES: 2+ pulses, warm, well-perfused, no edema. Right hip dressing clean , dry, intact. Hemovac 90 mL sanguinous drainage. NEUROLOGICAL: Cranial nerves II through XII grossly intact. Normal speech, gait not observed. PSYCH: Normal mood, normal affect. SKIN: Warm, dry, normal turgor, no rashes or lesions noted Active Medications Generic Name Dose Route Start Last Admin Trade Name Freq PRN Reason Stop Dose Admin Acetaminophen 650 mg 10/29/18 19:00 10/30/18 06:26 Tylenol - PO 11/01/18 18:59 650 mg Q6H JIMI Administration Al Hydroxide/Mg Hydroxide 30 ml 10/29/18 16:57 Mylanta Oral Suspension - PO Q4H PRN DYSPEPSIA Aspirin 81 mg 10/29/18 22:00 10/29/18 21:36 Asa - PO 81 mg BID JIMI Administration Fentanyl 50 mcg 10/29/18 18:55 Sublimaze Injection - IVPUSH [id number] PRN PAIN-PACU Cefazolin Sodium/Dextrose 2 gm in 50 mls @ 100 mls/hr 10/30/18 01:00 01:25 Ancef 2 Gm Premixed Ivpb - IVPB 10/30/18 09:29 100 mls/hr Q8H JIMI Administration Lisinopril 10 mg 10/30/18 10:00 Prinivil PO DAILY JIMI Magnesium Hydroxide 30 ml 10/29/18 16:57 Milk Of Magnesia - PO PRN PRN CONSTIPATION Ondansetron HCl 4 mg 10/29/18 16:57 Zofran Injection IVPUSH Q6H PRN NAUSEA Oxycodone HCl 10 mg 10/29/18 22:00 10/29/18 23:21 Oxycontin - PO 11/01/18 18:57 10 mg BID JIMI Administration Oxycodone HCl 10 mg 10/29/18 21:07 10/30/18 06:24 Roxicodone - PO 10 mg Q3H PRN Administration PAIN LEVEL 1-5 Oxycodone HCl 15 mg 10/29/18 21:07 10/30/18 01:25 Roxicodone - PO 15 mg Q3H PRN Administration PAIN LEVEL 6-10 Pantoprazole Sodium 40 mg 10/30/18 10:00 Protonix - PO DAILY JIMI Quetiapine Fumarate 50 mg 10/29/18 22:00 10/29/18 21:37 Seroquel - PO 50 mg HS JIMI Administration Senna/Docusate Sodium 1 tablet 10/29/18 22:00 10/29/18 21:37 Pericolace - PO 1 tablet BID JIMI Administration ASSESSMENT/PLAN:his is a 63 y/o man PMHx of: HTN, BPH, OA. Here for elective surgery s/p R-TKR POD #1. Plan: F/E/N Replete lytes prn Regular diet (Na 132) DVT ppx OOB SCDs TEDs Asa 81mg BID Physical Therapy Dispo: Requires Inpatient Care We will continue to follow the patient. Thank you for this consultative opportunity Visit type - Emergency Visit Emergency Visit: No - New Patient This patient is new to me today: Yes Date on this admission: 10/30/18 - Critical Care Critical Care patient: No - Discharge Referral Referred to [facility] Med P.C.: No
--- NOTE | 2018-10-30 08:12 | PN ---
Progress Note (short form) - Note Progress Note: POD #1 s/p Right TKR Alert. Sitting in Chair at bedside with legs in extension. Ice pack in place. Other than shuffling from bed to chair, no attempt at ambulating. C/o mild incisional tenderness. Adequate pain management via meds ordered. Voiding sponataneously. Tolearting PO diet. Denies n/v/f/c, CP, palpitations, SOB or DAVILA. Last Vital Signs Temp Pulse Resp BP Pulse Ox 97.4 F L 81 17 120/66 94 L //19 06:00 02// 06:00 02// 06:00 02// 06:00 // 06:00 Gen: alert. nad. LE: Right hip dressing c/d/i. No hematoma. SCDs bilat. Hemovac 90mL (sanguinous) . Calves are soft/supple. flex/ext 5/5 bilat Problem List - Problems (1) Status post total right knee replacement Assessment/Plan: POD 31 s/p Right TKR - Pain control. -DVT PPx: -Chemical: ASA 81 mg po BID x 6 weeks -Mechanical: COLT's, SCD's -Incentive Spirometry. -PT/OT/Rehab, OOB. -WBAT RLE. -f/u drain output, will be dc'd in AM -f/u am labs. -Care per medical hospitalist team. -Discharge planning: f/u [facility] [place] office operations technician for appointment : - Above plan discussed w/ Dr. Timbo French and agrees. Code(s): Z96.651 - PRESENCE OF RIGHT ARTIFICIAL KNEE JOINT
[2018-10-30 08:20] LABS: HEMATOCRIT 36.9 % (35.4-49); HEMOGLOBIN 12.9 GM/dl (11.7-16.9); MCHC 34.8 g/dl (32.0-35.9); MEAN CELL VOLUME 89.1 fl (80-96); MEAN PLT VOLUME 9.5 fl (7.5-11.1); PLATELET COUNT 221 K/MM3 (134-434); RBC 4.14 M/mm3 (4.00-5.60); RDW 11.9 % (11.9-15.9); WHITE BLOOD COUNT 13.8 K/mm3 (4.0-10.8)
[2018-10-30 08:24] LABS: ANION GAP 9 MMOL/L (8-16); BLOOD UREA NITROGEN 15 mg/dl (7-18); CALCIUM 8.3 mg/dl (8.5-10); CHLORIDE 97 mmol/L (98-107); CO2 26 mmol/L (21-32); CREATININE 0.7 mg/dl (0.55-1.3); GLUCOSE,RANDOM 141 mg/dl (74-106); POTASSIUM 3.9 mmol/L (3.5-5.1); SODIUM 132 mmol/L (136-145)
--- NOTE | 2018-10-30 09:05 | OP ---
DATE OF OPERATION: 10/29/2018 SURGEON: Per French MD INSTRUCTIONAL DESIGN MANAGER: Timbo French MD PREOPERATIVE DIAGNOSIS: Tricompartment osteoarthritis right knee in previous anterior cruciate ligament reconstructed knee. POSTOPERATIVE DIAGNOSIS: Tricompartmental osteoarthritis right knee in previous anterior cruciate ligament reconstructed knee. OPERATION PERFORMED: 1. Removal of hardware, anterior cruciate ligament screw from the femur. 2. Removal of hardware, anterior cruciate ligament screw from the tibia. 3. Right cemented posterior stabilized total knee arthroplasty (Tani). 4. Lateral release. ANESTHESIA: Spinal anesthesia with conscious sedation. OPERATION DETAILS: Patient correctly identified, brought to the operating room. The right lower extremity was prepped and draped in the routine manner with betadine scrub solution, wiped off with alcohol, DuraPrep applied. Timeout was called. Imaging was available for intraoperative evaluation. Midline incision. The old wound was opened. The incision was taken through the skin and subcutaneous tissue, down to the quadriceps mechanism. A muscle-splitting quadriceps incision was made and curved around the medial parapatellar region and then to the medial tibial tubercle. It was at that point that the old soft tissue proximal and medial aspect of the tibia was resected off of the bone bed. The femur was impossible to even capsize or even shift to gain exposure. This necessitated the patellar cut to be made at the start. This was facilitated by utilizing 2 towel clips clamps; 1 in the quadriceps tendon and 1 in the patellar ligament, to hold the patella at 90 degrees to its original position and the osteotomy cut was made from patellar ligament to quadriceps tendon. This itself would not allow any mobilization of the patella appropriately and a lateral facet resection of the patella was performed with a lateral release. It was thus that enabled the patella to be capsized and exposure of the proximal tibia to be achieved. The tibia was cut with the extramedullary jig device. A +4 resection was performed. It was 4 mm greater than the usual just because of the severe tightness of this knee. The tibial jigs were applied. This measured for a size 7 tibial tray. An osteotomy into the tibia was performed in order to resect and remove the screw from the previous ACL resection. Once this had been performed, the femoral jigs were applied. The femoral cuts were made to 3 degrees of external rotation. The mechanical access was brought back into neutral alignment with a +10 distal femoral cut and measured a size 6 femoral component. The flexion and extension gaps were even at 13 mm. The size 6 femoral component was inserted and a size 13 tibial tray liner trialing was utilized, which enabled us to appreciate the knee. It was brought into full extension. The original range of movement of this knee was 15 degrees of flexion to 70 degrees of flexion. The range of movement following this with the trialing components in position and the patella mechanism held with towel clips enabled an easy 0 to 120 degrees. Once we were satisfied with the entire event, the cementing was done in one stage with [employer] regular cement. The cement was cured. All extraneous cement was removed. A size 13-mm polyethylene TS liner inserted for improved stability. Range of movement was 0 to 120 degrees. Closure was as follows: After thorough lavage with quadriceps tendon fascia 1 Vicryl, subcutaneous 1 and 2-0 Vicryl, skin odell. Drainage: One- eighth inch Hemovac x1. It must be noted that prior to cementing, the bone was subjectively extensively pulse lavaged and cleansed. Operation went well. Extremely difficult procedure. MD DEVYN Martinez/[id number] MTDD
[2018-10-30] MEDS: ASPIRIN 81 MG CHEWABLE TABLETS PO SCH ×2 (09:23→21:32)
[2018-10-30] MEDS: SENNOSIDES/DOCUSATE COMBO (SENNA PLUS) TABLET (UD) PO SCH ×2 (09:23→21:33)
[2018-10-30] MEDS: PANTOPRAZOLE 40 MG TABLET (FP) PO SCH (09:24)
[2018-10-30] MEDS: LISINOPRIL 10 MG TABLET (FP) PO SCH (09:25)
[2018-10-30] MEDS: oxyCODONE HCL 10 MG SUSTAINED ACTING TABLET PO SCH ×2 (09:26→21:32)
--- NOTE | 2018-10-30 15:34 | PN ---
Progress Note (short form) - Note Progress Note: ANESTHESIA POST OP 63 yo male POD#1 s/p TKA Patient currently in PT. Pain adequately controlled. Tolerating PO VSS, Afebrile Continue current care, encouraged use of IS
[2018-10-30] MEDS: QUEtiapine FUMARATE 25 MG TABLET (FP) PO SCH (21:32)
[2018-10-31] MEDS: ACETAMINOPHEN 325 MG TABLET (FP) PO SCH ×3 (01:19→12:53)
[2018-10-31] MEDS: oxyCODONE HCL 5 MG TABLET PO PRN ×3 (05:29→12:54)
[2018-10-31 06:44] VITALS: BP 129/58; PULSE 73; TEMP 98.4
--- NOTE | 2018-10-31 09:28 | DS ---
"Physical Exam: SUBJECTIVE: POD #2 Right TKA. Patient seen and examined at bedside while sitting in chair. Patient states he has been OOB ambulating with PT and tolerating his diet and voiding. His pain is controlled and he denies any CP, SOB, N/V/D, fever or chills OBJECTIVE: Vital Signs Period Temp Pulse Resp BP Sys/Bush Pulse Ox Last 24 Hr 97.4 F-99.3 F 73-95 16-19 109-139/56-68 95-96 PHYSICAL EXAM GENERAL: The patient is awake, alert, and fully oriented, in no acute distress. HEAD: Normal with no signs of trauma. EYES: sclera anicteric, conjunctiva clear. NECK: Trachea midline, LUNGS: no auditory wheezes, unlabored resp on RA, no accessory muscle use. EXTREMITIES: R LE with diffuse edema throughout appropriate to status, dressing c/d/i with small amount of dry blood over inferior aspect. surrounding tissue intact with no evidence of active bleeding or d/c, no tracking erythema, no evidence of collection. ROM from 0-30degrees limited 2/2 pain. LE compartments soft with mild ttp, +dorsi/plantar flexion. SCDs bilat. drain removed with tip fully intact and drain site with no active d/c, pressure dressing applied. foot warm and well perfused Left LE compartments soft, supple and non-tender, scd's in place and foot warm and well perfused NEUROLOGICAL: Cranial nerves II through XII grossly intact. Normal speech, gait not observed. PSYCH: Normal mood, normal affect. SKIN: Warm, dry, normal turgor, no rashes or lesions noted. LABS: CBC, BMP 02/08/19 11:05 02/08/19 11:05 HOSPITAL COURSE: Date of Admission:02/ The patient was admitted to the Med-Surg Unit after an elective repair of their Right Knee arthritis. Now, s/p left total Right replacement. An xray was obtained in the OR and confirmed hardware in good position with no fractures or dislocations. The day of surgery, the patient ambulated the hallways with assistance. Narcotic and non-narcotic pain management control was achieved with an oral and IV approach. POD #2, the surgical drain was removed fully intact and without incident. Juliana-operative IV ABX were administered. DVT prophylaxis was achieved with Aspirin, SCDs and early ambulation. The patient ambulated with Physical Therapy and no services were recommended upon discharge. Narcotic scripts were checked with [facility] prior to escibe. The discharge instructions and an oral pain management plan were reviewed with the patient. All questions answered. Above plan discussed with Dr. French and agreed. Minutes to complete discharge: 25 Discharge Summary Reason For Visit: OSTEOARTHRITIS RIGHT KNEE Current Active Problems HTN (hypertension) (Acute) Status post total right knee replacement (Acute) Condition: Good - Instructions Diet, Activity, Other Instructions: Dr. French Discharge Instructions for Knee Replacement Post Operative Instructions Physical activity Physical Therapist will come to your home for the first 5 days. You will be set up with outpatient PT at your first post-operative visit. Use assistive devices for ambulation at all times. Weight bearing as tolerated on your surgical side. Do not put pillow under knee. May put pillow under heel. Wound care Leave your surgical dressing in place. Do not change the dressing until seen by your surgeon in the office. No baths or showers. Do not submerge your incision. Do not apply any ointments or lotions to your incision. Please call the office if your dressing is soiled/dirty or is falling off. Apply Graduated Compression Stockings (TEDS) to both lower extremities - remove daily for hygiene ONLY. Diet There are no dietary restrictions. Eat healthy, high-fiber foods. Drink 6 to 8 glasses of liquid each day. This will assist in keeping your bowels are regular. Pain management Any pain prescription medication ordered should be taken as prescribed for moderate to severe pain. Do not take additional Tylenol while taking Percocet. Take Aspirin 81 mg two times a day for a total of 6 weeks to prevent blood clots. Call Dr. French for any of the following: Severe pain not relieved by medication Fever of 101 or higher Excessive bleeding or drainage on dressing Inability to urinate If you experience chest pain or shortness of breath, please seek emergency care immediately. Please call the office at to confirm your post-op appointment for the week following surgery. [place] Prescription Monitoring Program report was requested by: Elo Glass | Reference #: [id number] Patient Name: Karson Carrero Date: 1955 Address: [address] [place] [address] Sex: Male Rx Written Rx Dispensed Drug Quantity Days Supply Prescriber Name 10/21/2018 10/23/2018 endocet 10-325 mg tablet 120 30 Per French MS, MD 10/21/2018 10/21/2018 tramadol hcl 50 mg tablet 90 30 Per French MS, MD 09/18/2018 09/25/2018 endocet 10-325 mg tablet 120 30 Annmarie Kelley (RPA-C) 09/18/2018 09/18/2018 tramadol hcl 50 mg tablet 90 30 Annmarie Kelley (RPA-C) 08/19/2018 08/27/2018 endocet 10-325 mg tablet 120 30 Per French MS, MD Disposition: HOME - Home Medications Comprehensive Discharge Medication List: Ambulatory Orders Lisinopril [Prinivil] 10 mg PO DAILY 02/13/18 Quetiapine Fumarate [Seroquel -] 50 mg PO HS 02/13/18 Sennosides [Senna -] 2 tab PO DAILY PRN 02/13/18 traMADol HCL [Ultram -] 50 mg PO Q6H PRN #20 tablet MDD 200mg 02/21/18 Aspirin [ASA -] 81 mg PO BID #84 tab.chew 10/31/18 Mag Hydrox/Al Hydrox/Simeth [Mylanta Oral Suspension -] 30 ml PO Q4H PRN cup Magnesium Hydrox 2400MG/30Ml [Milk of Magnesia -] 30 ml PO PRN PRN cup Oxycodone HCl/Acetaminophen [Percocet 5-325 mg Tablet] 1 - 2 tab PO Q4H PRN #20 tablet MDD 6 10/31/18 Problem List - Problems (1) Status post total right knee replacement Assessment/Plan: POD #2 Right TKA doing well. 1) OOB with PT 2) Encourage daily IS 3) DVT prophylaxis with SCDS and Aspirin 81 mg BID x 6 weeks 4) -WBAT R LE 5) Care per medical hospitalist team. 6) Discharge planning: for home with family today. 7) f/u [facility] [place] office information management specialist for appointment: 8) Above plan discussed with Dr. Timbo French and agrees Code(s): Z96.651 - PRESENCE OF RIGHT ARTIFICIAL KNEE JOINT This patient is new to me today: Yes Date on this admission: 10/31/18 Emergency Visit: No Critical Care patient: No - Discharge Referral Referred to [facility] Med P.C.: No"
[2018-10-31] MEDS: PANTOPRAZOLE 40 MG TABLET (FP) PO SCH (09:46)
[2018-10-31] MEDS: oxyCODONE HCL 10 MG SUSTAINED ACTING TABLET PO SCH (09:46)
[2018-10-31] MEDS: SENNOSIDES/DOCUSATE COMBO (SENNA PLUS) TABLET (UD) PO SCH (09:47)
[2018-10-31] MEDS: ASPIRIN 81 MG CHEWABLE TABLETS PO SCH (09:47)
[2018-10-31] MEDS: LISINOPRIL 10 MG TABLET (FP) PO SCH (09:47)
[2018-10-31 11:13] LABS: HEMATOCRIT 31.9 % (35.4-49); HEMOGLOBIN 10.7 GM/dl (11.7-16.9); MCH 29.5 pg (25.7-33.7); MCHC 33.4 g/dl (32.0-35.9); MEAN CELL VOLUME 88.5 fl (80-96); MEAN PLT VOLUME 8.3 fl (7.5-11.1); PLATELET COUNT 238 K/MM3 (134-434); RBC 3.61 M/mm3 (4.00-5.60); WHITE BLOOD COUNT 16.2 K/mm3 (4.0-10.8)
[2018-10-31 11:31] LABS: ALBUMIN 3.1 g/dl (3.4-5.0); ALK PHOS 67 U/L (45-117); ANION GAP 7 MMOL/L (8-16); BILIRUBIN,TOTAL 1.1 mg/dl (0.2-1); BLOOD UREA NITROGEN 18 mg/dl (7-18); CALCIUM 8.3 mg/dl (8.5-10); CHLORIDE 98 mmol/L (98-107); CO2 27 mmol/L (21-32); CREATININE 0.7 mg/dl (0.55-1.3); GLUCOSE,RANDOM 127 mg/dl (74-106); POTASSIUM 3.6 mmol/L (3.5-5.1); SGOT/AST 24 U/L (15-37); SGPT/ALT 19 U/L (13-61); SODIUM 132 mmol/L (136-145); TOT PROT 5.8 g/dl (6.4-8.2)
--- NOTE | 2018-10-31 15:44 | PATH ---
Surgical Pathology Report Patient Name: ADDISON MENDEZ Med. Rec. #: [id number] /Age/Gender: 1955 (Age: 63) / M Account: [id number] Location: [facility] MED-SURG Taken: 10/29/2018 Received: 10/29/2018 Reported: 10/31/2018 Physicians: Per French M.D. Specimen(s) Received A: BONES RIGHT KNEE B: RIGHT KNEE HARDWARE Clinical History Right knee osteoarthritis Final Diagnosis A. BONES, RIGHT KNEE, TOTAL KNEE REPLACEMENT: DEGENERATIVE JOINT DISEASE. B.. HARDWARE, RIGHT KNEE, REMOVAL: HARDWARE, DESCRIBED (GROSS EXAMINATION ONLY). Electronically Signed Elo Bocanegra M.D. Gross Description A. Received in formalin labeled "bones right knee," is a 12.0 x 10.0 x 1.9 cm aggregate of multiple irregular portions of bone and soft tissue. The tibial plateau measures 8.5 x 6.3 x 1.5 cm. There is a 1.7 cm in greatest dimension area of eburnation present. The remaining articular surfaces are lorenzo-yellow and focally granular. The underlying trabecular bone is yellow and hard. Supervisor Spinning sections are submitted in one cassette, following decalcification. B. Received fresh labeled "right knee hardware," are 2 bond metallic screws averaging 2.5 cm in length. No soft tissue is present. No sections are submitted, gross only. 10/30/2018 saudi10/30/2018
== END 2018-10-31 16:35 | disposition home or self-care (01) | DRG 302 ==
LOC: FM/S 09:18
PROVIDERS: ADMIT Orthopaedic Surgery Orthopaedic Surgery of the Spine; ATTEND Orthopaedic Surgery Orthopaedic Surgery of the Spine
PROC: 0SPC0JZ Removal of Synthetic Substitute from Right Knee Joint, Open Approach (ICD-10-PCS; 2018-10-29)
PROC: 0SRC0J9 Replacement of Right Knee Joint with Synthetic Substitute, Cemented, Open Approach (ICD-10-PCS; principal; 2018-10-29 15:06)
DX: M17.11 Unilateral primary osteoarthritis, right knee (principal); I10 Essential (primary) hypertension; N40.0 Benign prostatic hyperplasia without lower urinary tract symptoms
CPT/HCPCS: 36415; 73560-TC-RT-FY; 80048; 80053; 85027; 88300-TC; 88304-TC; 88311-TC; 94760; 97116-GP; 97162-GP